=== PATIENT | male | born 1960 | race Caucasian/White ===

== ENCOUNTER 2019-02-01 20:46 | Emergency (ER) | payer BC, OTHER ==
--- NOTE | 2019-02-01 21:02 | ED.PDOC ---
History of Present Illness - General Chief Complaint: Upper Extremity Injury Stated Complaint: left shoulder injury Time Seen by Provider: 02/01/19 20:51 Source: patient Exam Limitations: no limitations - History of Present Illness Initial Comments: Phil العراقي 58 y/o male came to ER with sharp left shoulder pain lifting tires for exercise this evening.Stated heard pop on his left shoulder with pain on movement.No numbness,weakness,or chest pains.He is right handed. Occurred: this evening Pain - Upper Extremity: moderate: Shoulder, right Method of Injury: sports injury Improving Factors: rest Worsening Factors: movement Associated Symptoms: pain Allergies/Adverse Reactions: Allergies Codeine Allergy (Unverified 01/25/14 00:52) Home Medications: Ambulatory Orders Candesartan Cilexetil 8 mg PO HS 01/25/14 Pantoprazole Tablet [Protonix] 40 mg PO HS 01/25/14 Sitagliptin-Metformin HCl [Janumet 50-500 mg] 1 tab PO BID 01/25/14 Baclofen 20 mg PO BID #14 tab 02/01/19 Tramadol HCl 100 mg PO TID PRN #30 tab 02/01/19 Review of Systems - Review of Systems Constitutional: States: no symptoms reported EENTM: States: no symptoms reported Respiratory: States: no symptoms reported Gastrointestinal/Abdominal: States: no symptoms reported Genitourinary: States: no symptoms reported Musculoskeletal: States: see HPI, joint pain - left shoulder All other Systems: Reviewed and Negative, No Change from Baseline Past Medical History (General) - Patient Medical History Hx Seizures: No Hx Stroke: No Hx Asthma: No Hx of COPD: No Hx Cardiac Disorders: No Hx Congestive Heart Failure: No Hx Pacemaker: No Hx Hypertension: Yes Hx Diabetes: Yes Hx MRSA: No Surgical History: other - right elbow - Social History Hx Alcohol Use: No Hx Substance Use: No Hx Physical Abuse: No Hx Emotional Abuse: No Family Medical History - Family History Father Hx Family Hypertension: Yes Physical Exam - Physical Exam General Appearance: Alert, Comfortable, No apparent distress Eyes, Ears, Nose, Throat Exam: normal ENT inspection Neck: non-tender, full range of motion, supple, normal inspection Cardiovascular/Respiratory: regular rate, rhythm, no M/R/G, normal peripheral pulses Abdominal Exam: non-tender Back Exam: normal inspection, no CVA tenderness, no vertebral tenderness Shoulder Exam: normal inspection, limited ROM - painful on flexion,abduction lef t shoulder with tenderness rotator cuff area, pain Elbow/Forearm Exam: normal inspection, non-tender, no evidence of injury Wrist Exam: normal inspection, non-tender, no evidence of injury Hand Exam: normal inspection, non-tender, no evidence of injury Neuro/Tendon: normal sensation, normal motor functions, responds to pain Mental Status: alert, oriented x 3 Skin Exam: normal color, warm/dry Progress - Progress Progress: 02/01/19 21:07 Vital Signs - 8 hr 02/01/19 20:53 Temperature 98.7 F Pulse Rate [ 87 left] Respiratory 18 Rate Blood Pressure 156/109 [left] O2 Sat by Pulse 99 Oximetry Departure - Departure Clinical Impression: Rotator cuff injury Qualifiers: Encounter type: initial encounter Laterality: left Qualified Code(s): S46.002A - Unspecified injury of muscle(s) and tendon(s) of the rotator cuff of left shoulder, initial encounter Time of Disposition: 21:20 Disposition: Discharge to Home or Self Care Condition: Fair Departure Forms: ED Discharge - Pt. Copy, Patient Portal Self Enrollment Instructions: Rotator Cuff Injury, Rotator Cuff Injury (DC) Referrals: Buster Coreas MD [Primary Care Provider] - 1-2 Weeks Prescriptions: Baclofen 20 mg PO BID #14 tab Tramadol HCl 100 mg PO TID PRN #30 tab PRN Reason: Pain Home Medications: Ambulatory Orders Candesartan Cilexetil 8 mg PO HS 01/25/14 Pantoprazole Tablet [Protonix] 40 mg PO HS 01/25/14 Sitagliptin-Metformin HCl [Janumet 50-500 mg] 1 tab PO BID 01/25/14 Baclofen 20 mg PO BID #14 tab 02/01/19 Tramadol HCl 100 mg PO TID PRN #30 tab 02/01/19 Additional Instructions: Ice pack to affected area 20 minutes 3 x a day during waking hours only for 5 days;Follow up with primary Md for referral to orthopedist of choice
[2019-02-01 21:04] VITALS: TEMP 98.7
--- NOTE | 2019-02-01 21:14 | RAD ---
EXAM: Shoulder,Left 2 or More Views CLINICAL INDICATION: Left shoulder pain COMPARISON: There is no previous study for comparison. FINDINGS: Two views of the left shoulder demonstrate no fracture or dislocation. Mild degenerative changes of the glenohumeral and AC joints are noted. The osseous structures are otherwise intact and unremarkable. IMPRESSION: Mild degenerative changes of the left glenohumeral and AC joints. Electronically signed by: Adrian Rodriguez MD 02/01/2019 9:11 PM CDT
[2019-02-01] MEDS ORDERED: traMADol HCL 50 MG (ER DISP) # 6 TABS PO ONE (21:20)
[2019-02-01] MEDS ORDERED: BACLOFEN 10 MG TAB PO ONE (21:20)
[2019-02-01 21:45] VITALS: BP 148/94; O2SAT 95
== END 2019-02-01 21:46 | disposition home or self-care (01) ==
LOC: ER 20:46
DX: S46.002A Unspecified injury of muscle(s) and tendon(s) of the rotator cuff of left shoulder, initial encounter (principal); I10 Essential (primary) hypertension; E11.9 Type 2 diabetes mellitus without complications; Z79.899 Other long term (current) drug therapy; Z88.5 Allergy status to narcotic agent; Y93.B9 Activity, other involving muscle strengthening exercises; Y92.9 Unspecified place or not applicable

== ENCOUNTER → 2019-02-07 | Outpatient (CLI) | payer BC ==
--- NOTE | 2019-02-07 17:08 | MRI ---
MRI left shoulder without contrast INDICATION: Shoulder pain subsequent encounter COMPARISON: August 12, 2010 MRI left shoulder TECHNIQUE: Noncontrast MR imaging left shoulder standard protocol FINDINGS: There is subscapularis tendinosis with mild thinning indicating low-grade chronic partial tear. No bicep rupture or dislocation. Moderate hypertrophic AC joint osteoarthrosis. Minimal thickening of the axillary capsule without active inflammation. Full-thickness mildly retracted tear distal supraspinatus retracted to the mid humeral head level maximal. Interstitial extension of the tear into the infraspinatus as well. Fairly severe subacromial and subdeltoid bursal fluid. Minimal glenohumeral osteophyte formation and degenerative labral tear especially posterior superior labrum Generalized grade 1-2 fatty marbling of the rotator cuff muscle bellies maximal in the teres minor. No pronounced muscle edema IMPRESSION: Full-thickness retracted tear supraspinatus with extension into the infraspinatus Mild chronic tendinosis and partial tear subscapularis tendon Mild generalized muscle atrophy most pronounced in the teres minor Prominent subacromial and subdeltoid bursal fluid Moderate AC joint arthrosis Labral degeneration and minimal glenohumeral osteoarthrosis Interval progression from the previous exam August 12, 2010 Electronically signed by: Mark Reed MD 02/07/2019 5:05 PM CDT
== END ==
LOC: MRI 07:55
PROVIDERS: ATTEND Family Medicine
DX: M75.102 Unspecified rotator cuff tear or rupture of left shoulder, not specified as traumatic (principal); M62.512 Muscle wasting and atrophy, not elsewhere classified, left shoulder; M19.012 Primary osteoarthritis, left shoulder

== ENCOUNTER → 2019-02-20 | Outpatient (CLI) | payer BC | LOC: LAB.O 10:54 | PROVIDERS: ATTEND Orthopaedic Surgery | DX: Z01.818 Encounter for other preprocedural examination (principal) ==

== ENCOUNTER 2019-03-21 05:49 | Day surgery (SDC) | payer BC ==
--- NOTE | 2019-03-19 08:41 | HP ---
CHIEF COMPLAINT: Left shoulder pain. HISTORY OF PRESENT ILLNESS: Mr. العراقي is a 58-year-old male with a history of pain in the shoulder that has been present for several years and has been getting progressively worse. He now has difficulty using the arm because of the pain. He denies any direct trauma, radiation of pain or neurologic symptoms. MRI does demonstrate tearing of the rotator cuff. As such, we discussed options for him. After discussing the risks, benefits and alternatives to operative therapy, he has given informed consent for rotator cuff repair. PAST SURGICAL HISTORY: None. MEDICATIONS: 1. Meloxicam. 2. Tylenol No. 3. ALLERGIES: NO KNOWN DRUG ALLERGIES. CODE STATUS: Full code. IMMUNIZATIONS: Up to date. FAMILY HISTORY: None pertinent to today's complaint. SOCIAL HISTORY: The patient does not smoke or use any illicit drugs. He does drink on occasion. REVIEW OF SYSTEMS: Negative except as indicated in the History of Present Illness. PHYSICAL EXAMINATION: VITAL SIGNS: Blood pressure 156/97. Pulse 74. Height 5'8". Weight 232 pounds. MENTAL STATUS: The patient is awake, alert, and is able to give a good history and participate in the physical. The patient is oriented to person, place and time. SKIN: Normal tone and turgor. HEENT: Normocephalic, atraumatic. Pupils equal, round and reactive. Mucosal membranes are moist. NECK: Normal range of motion. No thyromegaly, no lymphadenopathy. CHEST: Normal respiratory excursion. CARDIAC: Regular rate and rhythm. No murmurs, rubs or gallops. MUSCULOSKELETAL: He is very tender to palpation in the subacromial space with some minor acromioclavicular joint tenderness. He has no deformity to the extremity or malalignment. Sensation is intact. He has abduction to about 150 degrees, but he is very tender throughout his arc and has a positive drop-arm test. He has a negative belly press maneuver. Internal rotation is to about L2. He has pain with cross-chest adduction. He has pain with internal and external rotation during forward flexion. IMAGING: MRI does demonstrate tearing of the rotator cuff. ASSESSMENT: 1. Rotator cuff tear. PLAN: The plan at this point is for rotator cuff repair. We have discussed the risks, benefits, and alternatives to that and the patient has given informed consent. #[id number] [facility]
[2019-03-21] MEDS ORDERED: ePHEDrine SULF 50 MG/ML ONE (07:00)
[2019-03-21] MEDS ORDERED: GLYCOPYRROLATE 0.2 MG/ML VIAL ONE (07:00)
[2019-03-21] MEDS ORDERED: LIDOCAINE 1% 10 ML VIAL INJ ONE (07:00)
[2019-03-21] MEDS ORDERED: raNITIdine HCL INJ 25 MG/ML VIAL ONE (07:00)
[2019-03-21] MEDS ORDERED: NEOSTIGMINE METHYLSULFATE 1 MG/ML ML IV ONE (07:00)
[2019-03-21] MEDS ORDERED: SODIUM CHL 0.9% 100ML MINI-BAG 100 ML IVPB ONE (08:43)
[2019-03-21] MEDS ORDERED: LACTATED RINGERS 1,000 ML ONE ×2 (08:43→11:16)
[2019-03-21] MEDS ORDERED: ceFAZolin SODIUM 1 GM VIAL ONE (08:43)
[2019-03-21] MEDS ORDERED: MIDAZOLAM INJ 2 MG/2 ML VIAL ONE (09:01)
[2019-03-21] MEDS ORDERED: PROPOFOL 200 MG/20 ML VIAL IV ONE (09:01)
[2019-03-21] MEDS ORDERED: ONDANSETRON INJ 4 MG/2 ML VIAL ONE ×2 (09:01→13:39)
[2019-03-21] MEDS ORDERED: fentaNYL CITRATE INJ 50 MCG/ML AMP ONE (09:02)
[2019-03-21] MEDS ORDERED: ROCURONIUM BROMIDE 10 MG/ML VIAL ONE (09:02)
[2019-03-21] MEDS ORDERED: BUPIVACAINE LIPOSOME 13.3 MG/ML VIAL INJ ONE (09:30)
[2019-03-21] MEDS: BUPIVACAINE 0.5% 30 ML VIAL INJ ONE ×2 (10:42→11:45)
[2019-03-21] MEDS: BUPIVACAINE LIPOSOME 13.3 MG/ML VIAL INJ ONE ×2 (10:42→11:45)
[2019-03-21] MEDS: VANCOMYCIN HCL INJ 1,000 MG VIAL IVPB ONE ×4 (10:45→11:46)
[2019-03-21] MEDS: ceFAZolin SODIUM 1 GM VIAL ONE ×4 (10:45→11:46)
[2019-03-21] MEDS: HYDROmorphone HCL INJ 2 MG/ML VIAL ONE ×6 (12:20→13:10)
[2019-03-21] MEDS ORDERED: HYDROcodone 5MG/APAP 325MG 1 EA TAB ONE (14:08)
[2019-03-21 15:30] VITALS: BP 134/83; TEMP 96.5; O2SAT 94
--- NOTE | 2019-03-22 14:30 | OP ---
DATE OF PROCEDURE: 03/21/19 PREOPERATIVE DIAGNOSIS: 1. Left rotator cuff tear. POSTOPERATIVE DIAGNOSIS: 1. Left rotator cuff tear. PROCEDURE: 1. Rotator cuff repair. SURGEON: Vic Berg MD. EXPLOSIVE ORDNANCE DISPOSAL TECHNICIAN: Adalid Red CST, SA-C. ANESTHESIA: General anesthesia. COMPLICATIONS: None. FINDINGS: Large tear of the rotator cuff extending the entirety of the supraspinatus posteriorly into the anterior fibers of the infraspinatus. INDICATION: Mr. العراقي has a very long history of pain in the shoulder for which we tried conservative measures. We have discussed surgical intervention in the past, however, he refused it. At this point, his conservative measures have failed and he requested operative intervention. After discussing the risks, benefits and alternatives to that, the patient has given informed consent for that. PROCEDURE: The patient was brought to the Operating Room and placed in the supine position. General anesthesia was induced and the patient was transitioned into the beach chair position. Following transitioning into the beach chair position, the arm and shoulder were sterilely prepped and draped. Following prepping and draping, an incision was made at the border of the lateral acromion. Full thickness skin flaps were developed. A split was made between the anterior and middle heads of the deltoid followed by bursectomy. Minimal acromioplasty was performed. The rotator cuff was identified. Following identification of the cuff, a bony trough at the anatomic insertion was made to a good, bleeding bony bed. The end of the cuff was debrided and 6 suture anchors were used to reapproximate the cuff, forming a suture bridge construct. Following that, the arm was taken through a range of motion and the cuff tissue was found to be stable. There was no undue stress on the tendon edges. The wound was very thoroughly irrigated and the deltoid was reapproximated. Following reapproximation, the skin was closed with a running and interrupted subcuticular stitches. Sterile dressings were placed. The patient was placed in a sling, awoken from anesthesia and taken to Recovery. POSTOPERATIVE PLAN: He is going to be very limited with regards to range of motion for at least two months. Given the size of this tear, I think it would be prudent to hold off on doing that until we have some healing. He will followup with us in two days. #[id number] [facility]
== END 2019-03-21 15:10 | disposition home or self-care (01) ==
LOC: AMB 05:49
PROVIDERS: ATTEND Orthopaedic Surgery
DX: M75.122 Complete rotator cuff tear or rupture of left shoulder, not specified as traumatic (principal); M75.42 Impingement syndrome of left shoulder; M81.0 Age-related osteoporosis without current pathological fracture; E78.2 Mixed hyperlipidemia; I10 Essential (primary) hypertension; E11.9 Type 2 diabetes mellitus without complications; Z88.6 Allergy status to analgesic agent; Z79.82 Long term (current) use of aspirin; Z79.899 Other long term (current) drug therapy
CPT/HCPCS: 01630; 0232T; 23420; 36416; 80307; 82948; J0690; J1170; J2250; J2405; J2710; J2780; J3010; J3370; J3490; J7050; J7120

== ENCOUNTER 2019-05-27 22:55 | Emergency (ER) | payer BC ==
--- NOTE | 2019-05-27 23:43 | RAD ---
EXAM DESCRIPTION: Chest,1 View CLINICAL HISTORY: 59 years Male cough, fever COMPARISON: Prior study performed on the same day. TECHNIQUE: AP view of the chest was obtained. FINDINGS: Cardiac silhouette is enlarged. Central vessels are mildly increased. Elevation right hemidiaphragm. Patchy airspace opacity right infrahilar region. Additional retrocardiac airspace opacity. No effusions bilaterally. No pneumothorax. IMPRESSION: Enlarged heart with mild central congestion. Infiltrate and atelectatic change infrahilar regions bilaterally. Electronically signed by: Zoë Toure MD 05/27/2019 11:40 PM CDT
[2019-05-27] MEDS ORDERED: KETOROLAC TROMETHAMINE INJ 30 MG/ML VIAL IV ONE (23:46)
[2019-05-27] MEDS ORDERED: SODIUM CHLORIDE 0.9% 1000ML 1,000 ML IVS ONE (23:47)
[2019-05-27] MEDS ORDERED: OSELTAMIVIR 75 MG CAP ONE (23:50)
[2019-05-27] MEDS ORDERED: OSELTAMIVIR 75 MG CAP PO ONE (23:50)
--- NOTE | 2019-05-28 00:17 | ED.PDOC ---
History of Present Illness - General Chief Complaint: Respiratory Problem Stated Complaint: pain in throat, cough, fever Time Seen by Provider: 05/27/19 23:36 Source: patient, family Exam Limitations: no limitations - History of Present Illness Comments: Pt has had sorethroat, cough, fever, myalgias since last pm. He worked all day and feels very weak and SOB Timing/Duration: yesterday, getting worse Cough Quality/Degree: dry cough Possible Cause: no prior episodes Improving Factors: nothing Associated Symptoms: cough, fever/chills, muscle aches, nasal congestion, shortness of breath, sore throat Allergies/Adverse Reactions: Allergies NO KNOWN ALLERGY Allergy (Verified 03/19/19 10:07) Home Medications: Ambulatory Orders Aspirin [Baby Aspirin] 81 mg PO DAILY 03/19/19 Lisinopril 10 mg PO DAILY 03/19/19 Sitagliptin-Metformin HCl [Janumet] 1 tab PO BID 03/19/19 Oseltamivir Capsule [Tamiflu] 75 mg PO BID 5 Days #10 capsule 05/28/19 Review of Systems - Review of Systems Constitutional: States: chills, fever, malaise, weakness EENTM: States: nose congestion, throat pain Respiratory: States: cough, short of breath Cardiology: States: no symptoms reported Gastrointestinal/Abdominal: Denies: abdominal pain, nausea, vomiting Genitourinary: States: no symptoms reported Musculoskeletal: States: muscle pain Skin: States: no symptoms reported Neurological: States: weakness. Denies: headache Endocrine: States: no symptoms reported Past Medical History (General) - Patient Medical History Hx Seizures: No Hx Stroke: No Hx Asthma: No Hx of COPD: No Hx Cardiac Disorders: No Hx Congestive Heart Failure: No Hx Pacemaker: No Hx Hypertension: Yes Hx Diabetes: Yes Hx MRSA: Yes MRSA Source:: Wound - Vaccination History Hx Tetanus, Diphtheria Vaccination: No Hx Influenza Vaccination: No Hx Pneumococcal Vaccination: No - Social History Hx Tobacco Use: No Hx Alcohol Use: No Hx Substance Use: No Hx Physical Abuse: No Hx Emotional Abuse: No - Triage Comment ED Triage Comment: Since rotator cuff surgery in March,, has had pain in throat. Now cough and fever, congestion. Family Medical History - Family History Father Hx Family Hypertension: Yes Physical Exam - Physical Exam General Appearance: Alert, Lethargic, Obvious distress Eye Exam: bilateral normal ENT Exam: TMs normal, pharynx normal Neck: full range of motion, supple, normal inspection Respiratory: chest non-tender, no respiratory distress, rales Cardiovascular/Chest: normal peripheral pulses, tachycardia Gastrointestinal/Abdominal: non tender, soft, no organomegaly Extremity: non-tender, normal inspection, no pedal edema Neurologic: normal mood/affect, oriented x 3 Skin Exam: normal color, warm/dry Lymphatic: no adenopathy Progress - EKG/XRAY/CT EKG: Sinus, Tachy, no ST T wave changes Comments: rate 108, [place] 160, QRS 92, QTc 447 Departure - Departure Clinical Impression: Influenza A, Influenza B Disposition: Discharge to Home or Self Care Departure Forms: ED Discharge - Pt. Copy, Patient Portal Self Enrollment Referrals: Buster Coreas MD [Primary Care Provider] - 1-2 Weeks Prescriptions: Oseltamivir Capsule [Tamiflu] 75 mg PO BID 5 Days #10 capsule Home Medications: Ambulatory Orders Aspirin [Baby Aspirin] 81 mg PO DAILY 03/19/19 Lisinopril 10 mg PO DAILY 03/19/19 Sitagliptin-Metformin HCl [Janumet] 1 tab PO BID 03/19/19 Oseltamivir Capsule [Tamiflu] 75 mg PO BID 5 Days #10 capsule 05/28/19
[2019-05-28] MEDS ORDERED: SODIUM CHLORIDE 0.9% 1000ML 1,000 ML IVS ONE (00:41)
[2019-05-28 01:06] VITALS: O2SAT 94
[2019-05-28 01:35] VITALS: BP 104/63
[2019-05-28 02:04] VITALS: TEMP 99.4
== END 2019-05-28 02:04 | disposition home or self-care (01) ==
LOC: ER 22:55
DX: J10.1 Influenza due to other identified influenza virus with other respiratory manifestations (principal); R00.0 Tachycardia, unspecified; I10 Essential (primary) hypertension; E11.9 Type 2 diabetes mellitus without complications; Z79.82 Long term (current) use of aspirin; Z79.899 Other long term (current) drug therapy
CPT/HCPCS: 36415; 71045; 80048; 80076; 83605; 85025; 87502; 93005; J1885; J7030

== ENCOUNTER → 2019-07-18 | Outpatient (CLI) | payer BC | LOC: GMAM 10:53 | PROVIDERS: ATTEND Family Medicine | DX: Z12.5 Encounter for screening for malignant neoplasm of prostate (principal); E11.9 Type 2 diabetes mellitus without complications; I10 Essential (primary) hypertension; R53.83 Other fatigue ==

== ENCOUNTER → 2019-08-28 | Outpatient (CLI) | payer BC | LOC: GMAM 10:44 | PROVIDERS: ATTEND Family Medicine | DX: E29.1 Testicular hypofunction (principal) ==

== ENCOUNTER 2020-10-06 05:18 | Day surgery (SDC) | payer BC ==
[2020-10-06] MEDS ORDERED: LIDOCAINE 1% 10 ML VIAL INJ ONE (07:23)
[2020-10-06] MEDS ORDERED: BETAMETHASONE ACETATE/BETAMETH 6 MG/ML VIAL IM ONE (07:24)
[2020-10-06] MEDS ORDERED: BUPIVACAINE 0.5% 30 ML VIAL INJ ONE (07:25)
== END 2020-10-06 08:35 | disposition home or self-care (01) ==
LOC: AMB 05:18
PROVIDERS: ATTEND Family Medicine Sports Medicine
DX: M54.5 Low back pain (principal); M47.896 Other spondylosis, lumbar region; E78.5 Hyperlipidemia, unspecified; I10 Essential (primary) hypertension; E11.9 Type 2 diabetes mellitus without complications; Z88.6 Allergy status to analgesic agent; Z88.5 Allergy status to narcotic agent; Z88.8 Allergy status to other drugs, medicaments and biological substances; Z79.82 Long term (current) use of aspirin; Z79.899 Other long term (current) drug therapy

== ENCOUNTER 2020-10-20 07:19 | Day surgery (SDC) | payer BC ==
[~2020-10-20 07:19] MED LIST: BETAMETHASONE ACETATE/BETAMETH 6 MG/ML VIAL IM ONE; BUPIVACAINE 0.5% 30 ML VIAL INJ ONE; LIDOCAINE 1% 10 ML VIAL INJ ONE
[2020-10-20] MEDS ORDERED: BUPIVACAINE 0.5% 30 ML VIAL INJ ONE (12:04)
== END 2020-10-20 12:16 | disposition home or self-care (01) ==
LOC: AMB 07:19
PROVIDERS: ATTEND Family Medicine Sports Medicine
DX: M54.5 Low back pain (principal); M47.896 Other spondylosis, lumbar region; E78.5 Hyperlipidemia, unspecified; I10 Essential (primary) hypertension; E11.9 Type 2 diabetes mellitus without complications; Z82.49 Family history of ischemic heart disease and other diseases of the circulatory system; Z79.82 Long term (current) use of aspirin; Z79.899 Other long term (current) drug therapy